=== PATIENT | male | born 1975 | race Caucasian/White ===

== ENCOUNTER 2017-03-30 22:12 | Emergency (ER) | payer MEDICAID ==
[2017-03-31 01:03] LABS: microscopic required? NO
[2017-03-31 01:05] LABS: BASOPHIL % 0.2 % (0-2); PLATELET COUNT 196 x10^3mcL (130-400); RED CELL DISTRIBUTION WIDTH 13.8 % (11.5-14.5)
[2017-03-31 01:14] LABS: CALCIUM 8.3 mg/dL (8.5-10.1); CARBON DIOXIDE 24.9 mmol/L (21-32); CHLORIDE SERUM 103 mmol/L (98-107); CREATININE SERUM 1.2 mg/dL (0.7-1.3); GFR1 > 60 mL/min; GLUCOSE SERUM 128 mg/dL (74-106); POTASSIUM SERUM 3.5 mmol/L (3.5-5.1); SODIUM SERUM 133 mmol/L (136-145)
[2017-03-31 01:18] LABS: ALBUMIN 3.6 g/dL (3.4-5.0); ALKALINE PHOSPHATASE 69 U/L (46-116); ALT/SGPT 77 U/L (16-63); AST/SGOT 36 U/L (15-37); BILIRUBIN TOTAL 0.71 mg/dL (0.20-1.00); TOTAL PROTEIN, SERUM 7.8 g/dL (6.4-8.2)
[2017-03-31 01:20] LABS: UA SPECIFIC GRAVITY 1.015 (1.005-1.035); urine erythrocyte NEGATIVE (NEGATIVE)
[2017-03-31 02:23] VITALS: BP 94/58
== END 2017-03-31 02:23 | disposition home or self-care (01) ==
LOC: ED 22:12
PROVIDERS: Emergency Medicine
DX: R50.9 Fever, unspecified (principal); M54.5 Low back pain; R51 Headache; M79.1 Myalgia; R42 Dizziness and giddiness
CPT/HCPCS: 36415; J1170; Q0092; Q0162

== ENCOUNTER 2017-03-31 21:04 | Emergency (ER) | payer MEDICAID | END 2017-03-31 22:43 | disposition home or self-care (01) | LOC: ED 21:04 | DX: J02.9 Acute pharyngitis, unspecified (principal); M54.41 Lumbago with sciatica, right side; K59.00 Constipation, unspecified; R51 Headache; Z79.1 Long term (current) use of non-steroidal anti-inflammatories (NSAID) | CPT/HCPCS: J0696; J1170; Q0162 ==

== ENCOUNTER 2018-06-06 10:52 | Emergency (ER) | payer MEDICAID ==
[~2018-06-06] VITALS: Ht 165.1 cm; Wt 96.2 kg
[2018-06-06 11:11] VITALS: Ht 165.1 cm; Wt 96.2 kg
[2018-06-06 11:54] LABS: BASOPHIL % 0.3 % (0-2); PLATELET COUNT 235 x10^3mcL (130-400); RED CELL DISTRIBUTION WIDTH 12.9 % (11.5-14.5)
[2018-06-06 12:05] LABS: CALCIUM 9.3 mg/dL (8.5-10.1); CARBON DIOXIDE 28.7 mmol/L (21-32); CHLORIDE SERUM 95 mmol/L (98-107); CREATININE SERUM 1.1 mg/dL (0.7-1.3); GFR1 > 60 mL/min; GLUCOSE SERUM 317 mg/dL (74-106); POTASSIUM SERUM 3.9 mmol/L (3.5-5.1); SODIUM SERUM 133 mmol/L (136-145)
[2018-06-06 12:09] LABS: ALBUMIN 4.3 g/dL (3.4-5.0); ALKALINE PHOSPHATASE 111 U/L (46-116); ALT/SGPT 109 U/L (16-63); AST/SGOT 38 U/L (15-37); BILIRUBIN TOTAL 0.7 mg/dL (0.20-1.00); MAGNESIUM 2.1 mg/dL (1.8-2.4)
[2018-06-06 12:17] LABS: TOTAL PROTEIN, SERUM 9.4 g/dL (6.4-8.2)
[2018-06-06 13:27] VITALS: BP 118/74
== END 2018-06-06 13:27 | disposition home or self-care (01) ==
LOC: ED 10:52
PROVIDERS: Emergency Medicine
DX: E11.9 Type 2 diabetes mellitus without complications (principal); R51 Headache; R10.9 Unspecified abdominal pain; R53.1 Weakness; R63.1 Polydipsia; R35.8 Other polyuria
CPT/HCPCS: 82962; J7030; Q0092

== ENCOUNTER 2019-11-17 10:58 | Emergency (ER) | payer MEDICAID, SELFPAY ==
[~2019-11-17] VITALS: Ht 162.6 cm; Wt 95.3 kg
[2019-11-17 11:13] VITALS: Ht 162.6 cm; Wt 95.3 kg
[2019-11-17 13:26] VITALS: BP 102/73
== END 2019-11-17 13:27 | disposition home or self-care (01) ==
LOC: ED 10:58
DX: J18.9 Pneumonia, unspecified organism (principal); I10 Essential (primary) hypertension; E11.9 Type 2 diabetes mellitus without complications; Z20.828 Contact with and (suspected) exposure to other viral communicable diseases
CPT/HCPCS: 87804; Q0092

== ENCOUNTER 2019-12-02 15:34 | Emergency (ER) | payer MEDICAID, SELFPAY ==
[~2019-12-02] VITALS: Ht 162.6 cm; Wt 90.7 kg
[2019-12-02 15:50] VITALS: BP 113/80; Ht 162.6 cm; Wt 90.7 kg
== END 2019-12-02 16:40 | disposition home or self-care (01) ==
LOC: ED 15:34
DX: Z02.79 Encounter for issue of other medical certificate (principal); Z03.818 Encounter for observation for suspected exposure to other biological agents ruled out; I10 Essential (primary) hypertension; E11.9 Type 2 diabetes mellitus without complications